=== PATIENT | male | born 1980 | race Hispanic/Latino ===

== ENCOUNTER 2021-04-10 23:58 | Emergency (ER) | payer BC ==
--- NOTE | 2021-04-11 00:38 | Emergency Department Report ---
HPI - General Chief Complaint: Allergic Reaction Time Seen by Provider: 04/11/21 00:31 - HPI HPI: This is a 41-year-old male presents to the emergency department from home with complaint of some shortness of breath, facial and bilateral upper ex tremity numbness, and some abdominal discomfort that he describes as "feels like my body cavity is filling with fluid." The patient has a history of hereditary angioedema and says that this feels consistent with some previous flareups. He last had a flareup or exacerbation about 6 months ago. Patient has never been to this emergency department or hospital previously. He has not taken anything for symptoms prior to presentation. He is an occasional tobacco smoker. He denies any swelling of the tongue, throat, lips. No recent travel or sick contacts at home. ED Past Medical Hx - Past Medical History Previous Medical History?: Yes Additional medical history: Hereditary angioedema - Social History Smoking Status: Current Some Day Smoker ED Review of Systems ROS: Stated complaint: HAE/SWELLING/PAIN Other details as noted in HPI Comment: All other systems reviewed and negative Constitutional: denies: chills, fever Eyes: denies: eye pain, vision change ENT: denies: ear pain, throat pain Respiratory: shortness of breath. denies: cough Cardiovascular: denies: chest pain, palpitations Gastrointestinal: abdominal pain. denies: vomiting Genitourinary: denies: dysuria, discharge Musculoskeletal: denies: back pain, arthralgia Skin: denies: rash, lesions Neurological: numbness. denies: headache Physical Exam - Physical Exam Vital Signs: Vital Signs 04/11/21 00:05 Temperature 96.8 F L Pulse Rate 120 H Respiratory 24 Rate O2 Sat by Pulse 97 Oximetry Physical Exam: GENERAL: The patient is well-developed well-nourished. Patient appears anxious. HENT: Normocephalic. Atraumatic. Patient has moist mucous membranes. Oropharynx is clear. EYES: Extraocular motions are intact. NECK: Supple. Trachea is midline. CHEST/LUNGS: Clear to auscultation. There is no respiratory distress noted. HEART/CARDIOVASCULAR: Regular. There is mild tachycardia. There is no murmur. ABDOMEN: Abdomen is soft. There is some generalized abdominal tenderness to palpation. No guarding. Patient has normal bowel sounds. There is no abdominal distention. SKIN: Skin is warm and dry. NEURO: The patient is awake, alert, and oriented. The patient is cooperative. The patient has no focal neurologic deficits. Normal speech. Cranial nerves II through XII grossly intact. No facial asymmetry. MUSCULOSKELETAL: There is no tenderness or deformity. There is no limitation range of motion. Radial pulse +2/4 and capillary refill less than 2 seconds bilaterally. ED Course Vital Signs 04/11/21 00:05 Temperature 96.8 F L Pulse Rate 120 H Respiratory 24 Rate O2 Sat by Pulse 97 Oximetry ED Medical Decision Making - Lab Data Result diagrams: 04/11/21 00:44 04/11/21 00:44 Lab Results 04/11/21 04/11/21 04/11/21 Range/Units 00:44 00:44 00:44 WBC 19.1 H (4.5-11.0) K/mm3 RBC 5.78 H (3.65-5.03) M/mm3 Hgb 17.4 H (11.8-15.2) gm/dl Hct 51.4 H (35.5-45.6) % MCV 89 (84-94) fl MCH 30 (28-32) pg MCHC 34 (32-34) % RDW 13.5 (13.2-15.2) % Plt Count 344 (140-440) K/mm3 Lymph % (Auto) 19.9 (13.4-35.0) % Parker % (Auto) 6.7 (0.0-7.3) % Eos % (Auto) 1.1 (0.0-4.3) % Baso % (Auto) 0.4 (0.0-1.8) % Lymph # (Auto) 3.8 (1.2-5.4) K/mm3 Parker # (Auto) 1.3 H (0.0-0.8) K/mm3 Eos # (Auto) 0.2 (0.0-0.4) K/mm3 Baso # (Auto) 0.1 (0.0-0.1) K/mm3 Seg Neutrophils % 71.9 H (40.0-70.0) % Seg Neutrophils # 13.8 H (1.8-7.7) K/mm3 Sodium 138 (137-145) mmol/L Potassium 3.9 (3.6-5.0) mmol/L Chloride 94.8 L (98-107) mmol/L Carbon Dioxide 28 (22-30) mmol/L Anion Gap 19 mmol/L BUN 16 (9-20) mg/dL Creatinine 1.2 (0.8-1.3) mg/dL Estimated GFR > 60 ml/min BUN/Creatinine Ratio 13 % Glucose 142 H (75-100) mg/dL Calcium 9.4 (8.4-10.2) mg/dL Total Bilirubin 0.50 (0.1-1.2) mg/dL AST 28 (5-40) units/L ALT 49 (7-56) units/L Alkaline Phosphatase 78 (35-129) units/L Troponin T < 0.010 (0.00-0.029) ng/mL Total Protein 6.9 (6.3-8.2) g/dL Albumin 4.3 (3.9-5) g/dL Albumin/Globulin Ratio 1.7 % TSH 3.330 (0.270-4.200) mlU/mL Blood Type Antibody Screen 04/11/21 Range/Units 00:44 WBC (4.5-11.0) K/mm3 RBC (3.65-5.03) M/mm3 Hgb (11.8-15.2) gm/dl Hct (35.5-45.6) % MCV (84-94) fl MCH (28-32) pg MCHC (32-34) % RDW (13.2-15.2) % Plt Count (140-440) K/mm3 Lymph % (Auto) (13.4-35.0) % Parker % (Auto) (0.0-7.3) % Eos % (Auto) (0.0-4.3) % Baso % (Auto) (0.0-1.8) % Lymph # (Auto) (1.2-5.4) K/mm3 Parker # (Auto) (0.0-0.8) K/mm3 Eos # (Auto) (0.0-0.4) K/mm3 Baso # (Auto) (0.0-0.1) K/mm3 Seg Neutrophils % (40.0-70.0) % Seg Neutrophils # (1.8-7.7) K/mm3 Sodium (137-145) mmol/L Potassium (3.6-5.0) mmol/L Chloride (98-107) mmol/L Carbon Dioxide (22-30) mmol/L Anion Gap mmol/L BUN (9-20) mg/dL Creatinine (0.8-1.3) mg/dL Estimated GFR ml/min BUN/Creatinine Ratio % Glucose (75-100) mg/dL Calcium (8.4-10.2) mg/dL Total Bilirubin (0.1-1.2) mg/dL AST (5-40) units/L ALT (7-56) units/L Alkaline Phosphatase (35-129) units/L Troponin T (0.00-0.029) ng/mL Total Protein (6.3-8.2) g/dL Albumin (3.9-5) g/dL Albumin/Globulin Ratio % TSH (0.270-4.200) mlU/mL Blood Type O POSITIVE Antibody Screen Negative - Radiology Data Radiology results: image reviewed interpreted by me: Chest x-ray does not show any acute process. There are no pleural effusions, obvious pneumonia and there is no pneumothorax. No widened mediastinum. Abdominal x-ray shows nonspecific nonobstructive bowel gas. No free air. CT abdomen pelvis w con INDICATION / CLINICAL INFORMATION: ABD PAIN, fullness, hx of hereditary angioedema. TECHNIQUE: Axial CT images were obtained through the abdomen and pelvis after IV contrast. All CT scans at this location are perf ormed using CT dose reduction for ALARA by means of automated exposure control. COMPARISON: None available. FINDINGS: LOWER CHEST: No significant abnormality LIVER: No significant abnormality GALLBLADDER/BILIARY TREE: No significant abnormality PANCREAS: No significant abnormality SPLEEN: No significant abnormality ADRENALS: No significant abnormality KIDNEYS / URETER: No significant abnormality URINARY BLADDER: No significant abnormality REPRODUCTIVE ORGANS: No significant abnormality STOMACH / BOWEL: Stomach is unremarkable. There is extensive bowel wall thickening and inflammation involving the small bowel in the left abdomen. Small bowel is mildly dilated without abrupt transition to suggest obstruction. There is no pneumatosis. Colon is unremarkable. The appendix is normal in caliber. LYMPH NODES: No significant adenopathy. VASCULATURE: No significant abnormality. OTHER: Scattered small volume free fluid throughout the abdomen and pelvis, likely reactive. No organized collection. No free air. SKELETAL SYSTEM: No acute osseous findings. IMPRESSION: 1. Extensive bowel wall thickening and inflammation involving the small bowel in the left abdomen which is mildly dilated, compatible with severe infectious or inflammatory enteritis with adynamic ileus. No evidence of bowel obstruction. 2. Other incidental findings as above. - Medical Decision Making This patient presents to the emergency department with a complaint of some shortness of breath, generalized abdominal discomfort that makes the patient feels like it is filled up with fluid, some facial and extremity numbness/tingling, that started earlier in the evening. The patient has a history of hereditary angioedema and often gets exacerbations or flareups that include most of the symptoms, except for the facial symptoms. On examination he does not have any focal, motor or sensory deficits and cranial nerves are intact. Heart and lung sounds are normal to auscultation. There is some mild tachycardia and he has reproducible generalized abdominal tenderness to palpation. Patient was given IV fluid, IV analgesia, IV antiemetic, and a DuoNeb breathing treatment. Upon reevaluation he is feeling improved. Patient's labs are mostly unremarkable except for a leukocytosis of 19,000 and a slightly elevated hemoglobin level. Both of these laboratory findings are most likely secondary to some dehydration and demargination. The patient is on glucocorticoids regularly. Chest x-ray does not show any pneumonia, pleural effusions, pneumothorax, widened mediastinum, or any other acute process. Abdominal x-ray shows nonspecific nonobstructive bowel gas and no free air. CT scan of the abdomen pelvis with IV contrast was completed that shows some edema and thickening of the small bowel, as well as some mild dilatation of the bowel without signs of obstruction. Overall this appears consistent with an enteritis and an adynamic ileus. In this particular patient, it appears consistent with gastrointestinal manifestation of his hereditary angioedema. The patient has been reevaluated multiple times over multiple hours and is feeling greatly improved. The patient's abdominal pain has almost completely resolved. The patient was seen ambulatory in the emergency department without any shortness of breath or increased work of breathing, and he both appears and feels stable. The patient has good outpatient follow-up with primary care and also has a specialist for his hereditary angioedema. His brought his injectable medication that he takes for flareups. For all these reason the patient appears safe for discharge home at this time. He has been instructed to return to the closest emergency department with any worsening of his symptoms or with any acute distress. Critical Care Time: No Critical care attestation.: If time is entered above; I have spent that time in minutes in the direct care of this critically ill patient, excluding procedure time. ED Disposition Clinical Impression: Hereditary angio-edema, Enteritis Abdominal pain Qualifiers: Abdominal location: unspecified location Qualified Code(s): R10.9 - Unspecified abdominal pain Disposition: TO HOME OR SELFCARE Is pt being admited?: No Condition: Stable Instructions: Nausea, Adult, Abdominal Pain, Adult, Angioedema Additional Instructions: Please follow-up with your primary care physician in the next few days. Take all medications as previously prescribed. Return to the emergency department with any worsening of your symptoms, new or concerning symptoms not addressed during this current emergency department visit, or with any acute distress. Referrals: PRIMARY CARE [Primary Care Provider] - 2-3 Days Time of Disposition: 04:36
[2021-04-11] MEDS ORDERED: IPRATROPIUM/ALBUTEROL SULFATE 3 ML AMPUL.NEB IH ONE (00:43)
[2021-04-11] MEDS ORDERED: SODIUM CHLORIDE 0.9% 1000 ML 1,000 ML IV ONE (00:43)
[2021-04-11] MEDS ORDERED: ONDANSETRON 4 MG/2 ML INJ IV ONE (00:43)
[2021-04-11] MEDS ORDERED: METOCLOPRAMIDE 10 MG/2 ML INJ IV ONE (00:44)
[2021-04-11] MEDS ORDERED: SODIUM CHLORIDE 0.9% 500 ML 500 ML IV ONE (00:44)
[2021-04-11 01:12] LABS: Basophils # (Auto) 0.1 K/mm3 (0.0-0.1); Basophils % (Auto) 0.4 % (0.0-1.8); Eosinophils # (Auto) 0.2 K/mm3 (0.0-0.4); Eosinophils % (Auto) 1.1 % (0.0-4.3); Hematocrit 51.4 % (35.5-45.6); Hemoglobin 17.4 gm/dl (11.8-15.2); Lymphocytes # (Auto) 3.8 K/mm3 (1.2-5.4); Lymphocytes % (Auto) 19.9 % (13.4-35.0); Mean Corpuscular HGB Conc 34 % (32-34); Mean Corpuscular Volume 89 fl (84-94); Monocytes # (Auto) 1.3 K/mm3 (0.0-0.8); Monocytes % (Auto) 6.7 % (0.0-7.3); Platelet Count 344 K/mm3 (140-440); Red Blood Count 5.78 M/mm3 (3.65-5.03); Red Cell Distribution Width 13.5 % (13.2-15.2)
[2021-04-11 01:28] LABS: Alanine Aminotransferase 49 units/L (7-56); Albumin 4.3 g/dL (3.9-5); BUN/Creatinine Ratio 13; Blood Urea Nitrogen 16 mg/dL (9-20); Calcium 9.4 mg/dL (8.4-10.2); Hemolysis Index 5
--- NOTE | 2021-04-11 01:36 | XRay Report ---
XR abd series w cxr 1V INDICATION / CLINICAL INFORMATION: SOB, abdominal fullness/pain COMPARISON: None available. FINDINGS/IMPRESSION: No acute chest process. Bowel gas pattern is nonobstructive. No free air. No suspicious calcification s. No acute osseous findings. Signer Name: Bony Rosas MD Signed: 04/11/2021 1:32 AM Workstation Name: [id number]
--- NOTE | 2021-04-11 02:14 | Cat Scan Report ---
CT abdomen pelvis w con INDICATION / CLINICAL INFORMATION: ABD PAIN, fullness, hx of hereditary angioedema. TECHNIQUE: Axial CT images were obtained through the abdomen and pelvis after IV contrast. All CT sc ans at this location are performed using CT dose reduction for ALARA by means of automated exposure c ontrol. COMPARISON: None available. FINDINGS: LOWER CHEST: No significant abnormality LIVER: No significant abnormality GALLBLADDER/BILIARY TREE: No significant abnormality PANCREAS: No significant abnormality SPLEEN: No significant abnormality ADRENALS: No significant abnormality KIDNEYS / URETER: No significant abnormality URINARY BLADDER: No significant abnormality REPRODUCTIVE ORGANS: No significant abnormality STOMACH / BOWEL: Stomach is unremarkable. There is extensive bowel wall thickening and inflammation i nvolving the small bowel in the left abdomen. Small bowel is mildly dilated without abrupt transition to suggest obstruction. There is no pneumatosis. Colon is unremarkable. The appendix is normal in ca liber. LYMPH NODES: No significant adenopathy. VASCULATURE: No significant abnormality. OTHER: Scattered small volume free fluid throughout the abdomen and pelvis, likely reactive. No organ ized collection. No free air. SKELETAL SYSTEM: No acute osseous findings. IMPRESSION: 1. Extensive bowel wall thickening and inflammation involving the small bowel in the left abdomen whi ch is mildly dilated, compatible with severe infectious or inflammatory enteritis with adynamic ileus . No evidence of bowel obstruction. 2. Other incidental findings as above. Signer Name: Bony Rosas MD Signed: 04/11/2021 2:09 AM Workstation Name: [id number]
[2021-04-11 04:48] VITALS: BP 113/70
== END 2021-04-11 05:10 | disposition home or self-care (01) ==
LOC: ED 23:58
DX: D84.1 Defects in the complement system (principal); K52.9 Noninfective gastroenteritis and colitis, unspecified; R10.9 Unspecified abdominal pain; F17.200 Nicotine dependence, unspecified, uncomplicated; Z79.899 Other long term (current) drug therapy
CPT/HCPCS: 36415; 74022; 74177; 80053; 84443; 84484; 85025; 86850; 86900; 86901; 94640; 96374; 99284; J7030; Q9967